=== PATIENT | male | born 1985 | race Caucasian/White ===

== ENCOUNTER → 2016-10-27 | Day surgery (SDC) | payer BC ==
[~2016-10-27] MED LIST: Lactated Ringers 1,000 ML IV SCH; Lidocaine 4% Top Soln 5 ML LTA Syringe ONE; Lidocaine 4% Top Soln 5 ML LTA Syringe TOP ONE; Propofol 200 MG/20 ML SDV IV ONE
[2016-10-27 12:35] VITALS: BP 114/61
--- NOTE | 2016-10-30 08:42 | OR ---
DATE OF OPERATION: 10/27/2016 PREOPERATIVE DIAGNOSIS: EPIGASTRIC PAIN, REFLUX. POSTOPERATIVE DIAGNOSIS: EPIGASTRIC PAIN, REFLUX. SURGEON: Jean Carlos Tubbs MD PROCEDURE: ESOPHAGOGASTRODUODENOSCOPY WITH BIOPSIES X3, CHASE. 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 COMPLICATIONS: None. SPECIMEN: 1. Duodenal bulb biopsy x1. 2. Antral biopsy x2. 3. CHASE. FINDINGS: 1. Full-length EGD. 2. Minimal antral gastritis without erosion or ulceration. RECOMMENDATIONS: Medical followup with Dr. Garcia. We will place on proton pump therapy for empiric treatment. INDICATIONS: The patient has been having some persistent reflux symptoms and epigastric pain. Dr. Garcia recommended EGD after cholecystectomy gave him minimal relief. DESCRIPTION OF PROCEDURE: The patient was prepped and draped, placed in the left lateral decubitus position. A lubricated Olympus gastroscope was inserted over a bit, advanced into cricopharyngeus area, and easily intubated in the esophagus. Esophageal lining was benign in its entire course. The Z-line was crisp and sharp at 40 cm without spontaneous GERD seen. There was no distal esophagitis, stricturing, ulceration, or Collier's changes. The scope was advanced in the stomach through the pylorus into the third portion of duodenum. This and the duodenal bulb appeared completely benign. A biopsy to rule out celiac was accomplished. The scope was brought back into the stomach and retroflexed. The upper fundus and cardia appeared completely benign. A few small areas of gastritis potentially. No hiatal hernia visualized from below. Upon straightening, thorough evaluation rest of the fundus and antrum showed no gross abnormalities. No polyps, masses, ulcerations, or bleeding sites. There was some very scant antral gastritis near the pylorus which was biopsied x2. A CLOtest was obtained. Air was then suctioned and the scope was removed without complication. The patient was stable in the recovery room. CANDELRAIO/LONA /[id number]
== END ==
LOC: CC.SDS 10:24
PROVIDERS: ATTEND Family Medicine
DX: K29.50 Unspecified chronic gastritis without bleeding (principal); Z88.1 Allergy status to other antibiotic agents; Z88.2 Allergy status to sulfonamides; Z79.899 Other long term (current) drug therapy; K21.9 Gastro-esophageal reflux disease without esophagitis
CPT/HCPCS: 43239; 87081; A9270; J2704; J7120